=== PATIENT | male | born 2000 | race Caucasian/White ===

== ENCOUNTER → 2023-12-19 11:05 | Outpatient (REF) | payer OTHER, SELFPAY ==
[2023-12-19 12:57] LABS: Rubella Positive
[2023-12-19 13:20] LABS: Hepatitis B Surface Antibody Negative
[2023-12-20 15:07] LABS: Mumps Virus IgG Positive; Varicella Zoster IgG (VZV) Positive
[2023-12-21 09:47] LABS: Rubeola (Measles) IgG Positive
[2023-12-21 13:34] LABS: Quantiferon Mitogen minus NIL 9.98 IU/mL; Quantiferon NIL 0.02 IU/mL; Quantiferon Plus TB1 minus NIL 0.01 IU/mL (<=0.34); Quantiferon TB Gold Plus Negative (Negative)
== END ==
LOC: OHS 11:05
PROVIDERS: ATTENDING PHYSICIAN Nurse Practitioner Family
DX: Z23 Encounter for immunization (principal)
CPT/HCPCS: 36415; 86480; 86706; 86735; 86762; 86765; 86787

== ENCOUNTER 2024-04-16 19:47 | Emergency (ER) | payer SELFPAY ==
[2024-04-16 19:48] VITALS: BP 160/105
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
[2024-04-16 19:56] VITALS: BP 127/75
[2024-04-16 19:58] VITALS: BMI 19.8
[2024-04-16] MEDS: AUGMENTIN 875 MG/125 MG 1 TABLET PO (20:37)
== END 2024-04-16 20:46 | disposition home or self-care (01) ==
LOC: EMR 19:47
PROVIDERS: EMERGENCY PHYSICIAN Emergency Medicine
DX: S50.11XA Contusion of right forearm, initial encounter (principal); Y04.1XXA Assault by human bite, initial encounter; Y92.238 Other place in hospital as the place of occurrence of the external cause; Y99.0 Civilian activity done for income or pay
CPT/HCPCS: 99283

== ENCOUNTER 2024-06-06 22:16 | Emergency (ER) | payer OTHER, SELFPAY ==
[2024-06-06 22:18] VITALS: BP 137/92
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
== END 2024-06-06 23:33 | disposition home or self-care (01) ==
LOC: EMR 22:16
PROVIDERS: EMERGENCY PHYSICIAN Student in an Organized Health Care Education/Training Program
DX: Z77.21 Contact with and (suspected) exposure to potentially hazardous body fluids (principal)
CPT/HCPCS: 99282

== ENCOUNTER 2024-08-31 11:09 | Emergency (ER) | payer OTHER, SELFPAY ==
[2024-08-31 11:13] VITALS: BP 135/84
[2024-08-31 11:44] LABS: COVID-19 Antigen Negative (Negative)
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
[2024-08-31] MEDS: DUONEB 3 ML INH (13:13)
[2024-08-31] MEDS: MOTRIN 600 MG PO (13:14)
[2024-08-31 14:03] VITALS: BP 107/65
== END 2024-08-31 14:48 | disposition home or self-care (01) ==
LOC: EMR 11:09
PROVIDERS: EMERGENCY PHYSICIAN Emergency Medicine; FAMILY PHYSICIAN Family Medicine
DX: B34.9 Viral infection, unspecified (principal); J45.909 Unspecified asthma, uncomplicated; Z11.52 Encounter for screening for COVID-19
CPT/HCPCS: 94640; 99284; 71046; 87502; 87811